=== PATIENT | female | born 2000 ===

== ENCOUNTER 2022-06-17 18:34 | Emergency (ER) | payer OTHER ==
[~2022-06-17] VITALS: Ht 162.6 cm; Wt 74.8 kg
== END 2022-06-17 20:43 | disposition home or self-care (01) ==
LOC: ER 18:34
DX: S91.312A Laceration without foreign body, left foot, initial encounter (principal); W45.8XXA Other foreign body or object entering through skin, initial encounter; Y93.9 Activity, unspecified; Y92.9 Unspecified place or not applicable; Y99.9 Unspecified external cause status